=== PATIENT | female | born 1965 | race Two or more races ===

== ENCOUNTER 2016-12-30 22:24 | Emergency (ER) | payer BC, MEDICAID ==
[~2016-12-30] VITALS: Ht 160 cm; Wt 51.0 kg
[~2016-12-30 22:24] MED LIST: DENIES MEDS
[2016-12-30 22:29] VITALS: Ht 160 cm; Wt 51.0 kg
[2016-12-31] MEDS ORDERED: IBUP-1542 PO (02:01)
[2016-12-31] MEDS ORDERED: AZIT250T94 PO (02:01)
[2016-12-31] MEDS ORDERED: UDROBDM PO (02:01)
[2016-12-31] MEDS ORDERED: CETI10CA PO (02:02)
[2016-12-31] MEDS ORDERED: ACET500C5 PO (02:02)
[2016-12-31] MEDS ORDERED: FLUT9.9S NASAL (02:02)
--- NOTE | 2016-12-31 02:06 | ERD ---
ER Documentation Chief Complaint Date/Time DATE: 12/31/16 TIME: 02:03 Chief Complaint cough, st, chills, bilateral ear pain x 2 weeks HPI This 51-year-old female who presents the emergency department today with her son complaining of sore throat, cough for the past 2 weeks. Patient states that she feels chills but denies any fevers. States that one month ago she called her doctor about her sore throat was told that she had a virus. Denies any vomiting, diarrhea ROS All systems reviewed and are negative except as per history of present illness. Medications Home Meds Active Scripts Cetirizine Hcl* (Zyrtec*) 10 Mg Capsule, 10 MG PO DAILY, #14 TAB.CHEW Prov:ASHLIE REYNOLDS PA-C 12/31/16 Fluticasone Propionate (Flonase Allergy Relief) 9.9 Ml [place].susp, 1 SPRAY NASAL BID, #1 BOTTLE TO EACH NOSTRIL Prov:ASHLIE REYNOLDS PA-C 12/31/16 Acetaminophen* (Tylophen*) 500 Mg Capsule, 1 CAP PO Q6H Y for PAIN AND OR ELEVATED TEMP, #30 CAP Prov:ASHLIE REYNOLDS PA-C 12/31/16 Ibuprofen* (Motrin*) 600 Mg Tab, 600 MG PO Q6, #30 TAB Prov:ASHLIE REYNOLDS PA-C 12/31/16 Guaifenesin-Dextromethorphan* (Robitussin* DM) 100MG/10MG/5ML Syrup, 10 ML PO Q6H Y for COUGH for 5 Days, ML Prov:ASHLIE REYNOLDS PA-C 12/31/16 Azithromycin* (Zithromax*) 250 Mg Tablet, 250 MG PO .ZPACK DIRECTED, #6 TAB TAKE 500 MG (2 TABS) THE FIRST DAY THEN 250 MG (1 TAB) DAYS 2-5 Prov:ASHLIE REYNOLDS PA-C 12/31/16 Reported Medications [Denies Meds] No Conflict Check 06/19/10 Allergies Allergies: Coded Allergies: Penicillins (Verified Allergy, Mild, 06/19/10) PMhx/Soc Medical and Surgical Hx: pt denies Medical Hx, pt denies Surgical Hx History of Surgery: No Anesthesia Reaction: No Hx Neurological Disorder: No Hx Respiratory Disorders: No Hx Cardiac Disorders: No Hx Psychiatric Problems: No Hx Miscellaneous Medical Probl: No Hx Alcohol Use: No Hx Substance Use: No Hx Tobacco Use: No Smoking Status: Never smoker Physical Exam Vitals Vital Signs Date Time Temp Pulse Resp B/P Pulse Ox O2 Delivery O2 Flow Rate FiO2 12/30/16 22:29 98.2 82 17 149/67 99 Physical Exam Const: No acute distress Head: Atraumatic Eyes: Normal Conjunctiva ENT: Ears TMs normal. Nose no drainage. Throat with mild erythema and posterior pharynx drainage. No exudate Neck: Full range of motion..~ No meningismus. Resp: Clear to auscultation bilaterally. No absent breath sounds. No wheezing. Cardio: Regular rate and rhythm, no murmurs Abd: Soft, non tender, non distended. Normal bowel sounds Skin: No petechiae or rashes Neur: Awake and alert Psych: Normal Mood and Affect Procedures/MDM This 51-year-old female who presents emergency department today complaining of cough sore throat for the past 2 weeks. He is afebrile and otherwise well- appearing. Her oxygen saturation 99%. Do not feel that she requires laboratory workup or imaging at this time. Do not feel that she requires a chest x-ray. Low suspicion for pneumonia, PE, abscess, pleural effusion, pneumothorax. Given the duration of symptoms I will treat the patient with azithromycin to treat possible strep pharyngitis versus bronchitis versus viral URI versus allergic. I have low suspicion for strep pharyngitis, peritonsillar abscess, retropharyngeal abscess, otitis media, PNA, sinusitis, abscess, meningitis, sepsis, or other acute infectious bacterial process. Patient was given a prescription for azithromycin, Tylenol, Motrin, Flonase, Zyrtec and Robitussin At this time the patient is stable for discharge and outpatient management. They should follow up with their PCP in the next 1-2. They may return to the emergency department sooner if symptoms persist or worsen. Patient understood and agreed with the plan. Departure Diagnosis: Primary Impression: Multiple complaints Condition: Fair Patient Instructions: Self-Care for Sore Throats, Cough, Chronic, Uncertain Cause, (Adult) Referrals: ANDREI GLASS MD (PCP) Additional Instructions: Llame al doctor MAANA y arnold sylvie TRES PARA DENTRO DE 1-2 CLARK.Dgale a la secretaria que nosotros le instruimos hacer esta tres.Avise o llame si de leon condicin se empeora antes de la tres. Regresa aqui si peor o no mejor. Take Tylenol or Motrin for pain Take Zyrtec and Flonase as prescribed Take azithromycin and Robitussin as prescribed ASHLIE REYNOLDS PA-C Dec 31, 2016 02:06
[2016-12-31 02:17] VITALS: BP 134/76; PULSE 78; RESP 18; TEMP 97.9
== END 2016-12-31 02:17 | disposition home or self-care (01) ==
LOC: FTE 22:24
DX: R05 Cough (principal); J02.9 Acute pharyngitis, unspecified; H92.03 Otalgia, bilateral; R68.83 Chills (without fever)
CPT/HCPCS: 99283

== ENCOUNTER 2018-12-24 23:18 | Emergency (ER) | payer BC, OTHER ==
[~2018-12-24] VITALS: Ht 154.9 cm; Wt 64.0 kg
[~2018-12-24 23:18] MED LIST changes: +ACET500C5 PO; +AZIT250T PO; +CETI10CA PO; +FLUT9.9S NASAL; +GUAI5SYR2 PO; +IBUP-1542 PO
[2018-12-24 23:20] VITALS: BP 160/77; PULSE 68; RESP 16; Ht 154.9 cm; Wt 64.0 kg
--- NOTE | 2018-12-25 03:05 | ERD ---
ER Documentation Chief Complaint Chief Complaint CHEST PAIN X4 DAYS RADIATING TO LT ARM HPI 53-year-old female chest pain substernal nonexertional positional with no exacerbating alleviating factors the past 2 days. Each session last about 15 minutes and is relieved by rest. Mild associated shortness of breath. No nausea vomiting fevers or chills. No other current complaints. ROS All systems reviewed and are negative except as per history of present illness. Medications Home Meds Active Scripts Cetirizine Hcl* (Zyrtec*) 10 Mg Capsule, 10 MG PO DAILY, #14 TAB.CHEW Prov:ASHLIE REYNOLDSC 12/31/16 Fluticasone Propionate (Flonase Allergy Relief) 9.9 Ml [place].susp, 1 SPRAY NASAL BID, #1 BOTTLE TO EACH NOSTRIL Prov:ASHLIE REYNOLDSC 12/31/16 Acetaminophen* (Tylophen*) 500 Mg Capsule, 1 CAP PO Q6H PRN for PAIN AND OR ELEVATED TEMP, #30 CAP Prov:ASHLIE REYNOLDSC 12/31/16 Ibuprofen* (Motrin*) 600 Mg Tab, 600 MG PO Q6, #30 TAB Prov:ASHLIE REYNOLDSC 12/31/16 Guaifenesin-Dextromethorphan* (Robitussin* DM) 100MG/10MG/5ML Syrup, 10 ML PO Q6H PRN for COUGH for 5 Days, ML Prov:ASHLIE REYNOLDSC 12/31/16 Azithromycin* (Zithromax*) 250 Mg Tablet, 250 MG PO .DEANNE DIRECTED, #6 TAB TAKE 500 MG (2 TABS) THE FIRST DAY THEN 250 MG (1 TAB) DAYS 2-5 Prov:ASHLIE REYNOLDSC 12/31/16 Reported Medications [Denies Meds] No Conflict Check 06/19/10 Allergies Allergies: Coded Allergies: Penicillins (Verified Allergy, Mild, 06/19/10) PMhx/Soc History of Surgery: No Anesthesia Reaction: No Hx Neurological Disorder: No Hx Respiratory Disorders: No Hx Cardiac Disorders: No Hx Psychiatric Problems: No Hx Miscellaneous Medical Probl: Yes (POSSIBLE STROKE) Hx Alcohol Use: No Hx Substance Use: No Hx Tobacco Use: No Smoking Status: Never smoker Physical Exam Vitals Vital Signs Date Temp Pulse Resp B/P (MAP) Pulse Ox O2 O2 Flow FiO2 Time Delivery Rate 12/24/18 98.0 68 16 160/77 98 23:20 (104) Physical Exam Const: No acute distress Head: Atraumatic Eyes: Normal Conjunctiva ENT: Normal External Ears, Nose and Mouth. Neck: Full range of motion. No meningismus. Resp: Clear to auscultation bilaterally Cardio: Regular rate and rhythm, no murmurs Abd: Soft, non tender, non distended. Normal bowel sounds Skin: No petechiae or rashes Back: No midline or flank tenderness Ext: No cyanosis, or edema Neur: Awake and alert Psych: Normal Mood and Affect Result Diagram: 12/25/185212/25/1852 Results 24 hrs Laboratory Tests Test 12/25/18 00:53 White Blood Count 9.9 10^3/ul Red Blood Count 4.35 10^6/ul Hemoglobin 12.0 g/dl Hematocrit 36.6 % Mean Corpuscular Volume 84.1 fl Mean Corpuscular Hemoglobin 27.6 pg Mean Corpuscular Hemoglobin Concent 32.8 g/dl Red Cell Distribution Width 15.2 % Platelet Count 316 10^3/UL Mean Platelet Volume 9.6 fl Immature Granulocytes % 0.400 % Neutrophils % 45.4 % Lymphocytes % 44.6 % Monocytes % 7.9 % Eosinophils % 1.2 % Basophils % 0.5 % Nucleated Red Blood Cells % 0.0 /100WBC Immature Granulocytes # 0.040 10^3/ul Neutrophils # 4.5 10^3/ul Lymphocytes # 4.4 10^3/ul Monocytes # 0.8 10^3/ul Eosinophils # 0.1 10^3/ul Basophils # 0.1 10^3/ul Nucleated Red Blood Cells # 0.0 10^3/ul Sodium Level 138 mmol/L Potassium Level 3.6 mmol/L Chloride Level 104 mmol/L Carbon Dioxide Level 25 mmol/L Anion Gap 9 Blood Urea Nitrogen 18 mg/dl Creatinine 0.81 mg/dl Est Glomerular Filtrat Rate mL/min > 60 mL/min Glucose Level 92 mg/dl Calcium Level 9.1 mg/dl Total Bilirubin 0.2 mg/dl Direct Bilirubin 0.00 mg/dl Indirect Bilirubin 0.2 mg/dl Aspartate Amino Transf (AST/SGOT) 24 IU/L Alanine Aminotransferase (ALT/SGPT) 23 IU/L Alkaline Phosphatase 80 IU/L Troponin I < 0.012 ng/ml B-Type Natriuretic Peptide 537 PG/ML Total Protein 7.5 g/dl Albumin 4.0 g/dl Globulin 3.50 g/dl Albumin/Globulin Ratio 1.14 Procedures/MDM EKG: Rate/Rhythm: [Normal Sinus Rhythm] QRS, ST, T-waves: [No changes consistent w/ acute ischemia] Impression: [No evidence of ischemia or arrhythmia] Chest X-ray 1V Interpreted by me: Soft Tissue: No acute abnormalities Bones: No acute abnormalities Mediastinum/Cardiac Silhouette/Lungs: [No acute abnormalities] Patient's symptoms are concerning for cardiac cause will require inpatient workup and continuous monitoring. Further w/u for ischemia, arrhythmia, PE or dissection will be deferred to the inpatient team. Accepting Care Team: Current data and ongoing care discussed. Time: 2:45 AM Primary Provider: Dr. Lilly Consulting: Deferred to inpatient team Outstanding Data: none Departure Diagnosis: Primary Impression: Chest pain Chest pain type: unspecified Qualified Codes: R07.9 - Chest pain, unsp ecified Condition: Stable REJI HINTON Dec 25, 2018 03:05
== END 2018-12-25 03:05 | disposition left against medical advice (07) ==
LOC: E/R 23:18 → CANBEDREQ 12-27 19:53
DX: R07.9 Chest pain, unspecified (principal)
CPT/HCPCS: 36415; 71045; 80053; 83880; 84484; 85025; 93005